=== PATIENT | female | born 1960 | race Caucasian/White ===

== ENCOUNTER 2018-05-06 12:00 | Inpatient (IN) | payer OTHER ==
[~2018-05-06] VITALS: Ht 165.1 cm; Wt 72.6 kg
[2018-05-06] MEDS ORDERED: COZAAR50 MG PO (14:41)
[2018-05-06] MEDS ORDERED: CYMBALTA60 MG PO (14:42)
[2018-05-16] MEDS ORDERED: GABAPENTIN800 MG PO (10:31)
[2018-05-16] MEDS ORDERED: DOCUSATE SODIU100 MG PO (10:31)
[2018-05-16] MEDS ORDERED: AMOX-CLAV 875-1 EACH PO (10:32)
[2018-05-16] MEDS ORDERED: PERCOCET 5-3251 EACH PO (10:32)
[2018-05-16] MEDS ORDERED: CLONAZEPAM1 MG PO (10:32)
== END 2018-05-16 12:48 | disposition home or self-care (01) | DRG 455 ==
LOC: O/R 05-15 04:50 → SURG 05-15 12:00 → PED 05-15 15:02
PROVIDERS: Orthopaedic Surgery Orthopaedic Surgery of the Spine
PROC: 0SG1071 Fusion of 2 or more Lumbar Vertebral Joints with Autologous Tissue Substitute, Posterior Approach, Posterior Column, Open Approach (ICD-10-PCS; 2018-05-15)
PROC: 0ST20ZZ Resection of Lumbar Vertebral Disc, Open Approach (ICD-10-PCS; 2018-05-15)
PROC: 0SG10AJ Fusion of 2 or more Lumbar Vertebral Joints with Interbody Fusion Device, Posterior Approach, Anterior Column, Open Approach (ICD-10-PCS; 2018-05-15)
PROC: 07DS3ZZ Extraction of Vertebral Bone Marrow, Percutaneous Approach (ICD-10-PCS; 2018-05-15)
PROC: 0SG10A0 Fusion of 2 or more Lumbar Vertebral Joints with Interbody Fusion Device, Anterior Approach, Anterior Column, Open Approach (ICD-10-PCS; principal; 2018-05-15 13:30)
DX: M96.1 Postlaminectomy syndrome, not elsewhere classified (principal); M48.061 Spinal stenosis, lumbar region without neurogenic claudication; M43.16 Spondylolisthesis, lumbar region; M51.16 Intervertebral disc disorders with radiculopathy, lumbar region; I10 Essential (primary) hypertension